=== PATIENT | male | born 1980 | race Caucasian/White ===

== ENCOUNTER 2018-06-14 09:21 | Emergency (ER) | payer OTHER, SELFPAY ==
[2018-06-14] MEDS ORDERED: Sodium Chloride 0.9% 1,000 ML IV STA (09:39)
[2018-06-14 09:41] VITALS: RESP 18; O2SAT 99
--- NOTE | 2018-06-14 10:13 | ED PDOC ---
Arrival/HPI - General Chief Complaint: Syncope Time Seen by Provider: 06/14/18 09:22 Historian: Patient - History of Present Illness Narrative History of Present Illness (Text): 06/14/18 10:05 37yo yo male with no pmhx who was bib EMS for complaint syncopal episode this morning. Patient states he have had fever, nondproductive cough and generalized weakness for 2days and was buying OTC cold symptoms when he had a near syncopal episode. States he did not get the flu vaccine. Denies sore throat, nausea, vomiting, diarrhea, constipation, chest pain, headache, focal weakness, neck pain, back pain, abdominal pain, sick contact, any other complaint. Past Medical History - Provider Review Nursing Documentation Reviewed: Yes - Psychiatric Hx Substance Use: No Family/Social History - Physician Review Nursing Documentation Reviewed: Yes Family/Social History: Unknown Family HX Smoking Status: Never Smoked Hx Alcohol Use: No Hx Substance Use: No Allergies/Home Meds Allergies/Adverse Reactions: Allergies No Known Allergies Allergy (Verified 06/14/18 09:25) Review of Systems - Physician Review All systems were reviewed & negative as marked: Yes - Review of Systems Constitutional: Fatigue, Fevers Eyes: Normal ENT: Normal Respiratory: Cough Cardiovascular: Normal Gastrointestinal: Normal Genitourinary Male: Normal Musculoskeletal: Normal Skin: Normal Neurological: Normal Endocrine: Normal Hemo/Lymphatic: Normal Psychiatric: Normal Physical Exam Vital Signs Reviewed: Yes Vital Signs Temp Pulse Resp BP Pulse Ox 06/14/18 09:40 100.5 F H 90 18 107/79 99 Temperature: Febrile Blood Pressure: Normal Pulse: Regular Respiratory Rate: Normal Appearance: Positive for: Well-Appearing, Non-Toxic, Comfortable Pain Distress: None Mental Status: Positive for: Alert and Oriented X 3 Finger Stick Blood Glucose: 111 - Systems Exam Head: Present: Atraumatic, Normocephalic Pupils: Present: PERRL Extroacular Muscles: Present: EOMI Conjunctiva: Present: Normal Mouth: Present: Moist Mucous Membranes Pharnyx: Present: Normal Neck: Present: Normal Range of Motion Respiratory/Chest: Present: Clear to Auscultation, Good Air Exchange. No: Respiratory Distress, Accessory Muscle Use, Wheezes, Decreased Breath Sounds, Rales, Retracting, Rhonchi Cardiovascular: Present: Regular Rate and Rhythm, Normal S1, S2. No: Murmurs Abdomen: No: Tenderness, Distention, Peritoneal Signs Back: Present: Normal Inspection Upper Extremity: Present: Normal Inspection. No: Cyanosis, Edema Lower Extremity: Present: Normal Inspection. No: Edema Neurological: Present: GCS=15, CN II-XII Intact, Speech Normal, Motor Func Grossly Intact, Normal Sensory Function, Normal Cerebellar Funct, Memory Normal, Other (No gross focal neurological deficit) Skin: Present: Warm, Dry, Normal Color. No: Rashes Psychiatric: Present: Alert, Oriented x 3, Normal Insight, Normal Concentration Medical Decision Making ED Course and Treatment: 06/14/18 11:10 37yo male bib EMS for syncopal episode. Pt reported fever and cough x2days. He was febrile in ED. Labs 1L NS, Ibuprofen 600mg Rapid strep Chest xray Lab was reviewed and pt was noted to be leukopenic. Rapid flu is negative. Pt treated with Tamiflu. Result was DW the pt and he was DC home with Tamiflu. Referred to his PMD/Clinic - RAD Interpretation Radiology Orders: 06/14/18 09:39 CHEST PORTABLE [RAD] Stat - Medication Orders Current Medication Orders: Sodium Chloride (Sodium Chloride 0.9%) 1,000 mls @ 999 mls/hr IV .Q1H1M STA Stop: 06/14/18 10:39 Discontinued Medications Ibuprofen (Motrin Tab) 600 mg PO STAT STA Stop: 06/14/18 09:57 Disposition/Present on Arrival - Present on Arrival Any Indicators Present on Arrival: No History of DVT/PE: No History of Uncontrolled Diabetes: No Urinary Catheter: No History of Decub. Ulcer: No History Surgical Site Infection Following: None - Disposition Have Diagnosis and Disposition been Completed?: Yes Diagnosis: Influenza Disposition: HOME/ ROUTINE Disposition Time: 10:50 Patient Plan: Discharge Condition: STABLE Discharge Instructions (ExitCare): Flu, Adult (DC) Additional Instructions: Drink plenty of fluid and rest take Tylenol every 6hrs as needed for fever/bodyache Take medication as directed Follow up with your doctor Return to ED for any new or worsening symptoms Prescriptions: Benzonatate [Tessalon Perles] 100 mg PO TID #30 sgl Oseltamivir Phosphate [Tamiflu] 75 mg PO BID #14 capsule Referrals: Gina Taylor MD [Medical Doctor] - Follow up with primary Forms: [employer] (Vietnamese)
[2018-06-14 10:38] LABS: EOS % 0.5 % (1.5-5.0); HEMOGLOBIN 14.8 g/dL (14.0-18.0); LYMPH # 0.9 (1.2-3.4); LYMPH % 21.5 % (22.0-35.0); MEAN CELL VOLUME 88.8 fl (80.0-105.0); MEAN CORPUSCULAR HEMOGLOBIN 30.1 pg (25.0-35.0); MEAN CORPUSCULAR HGB CONC 33.9 g/dl (31.0-37.0); MEAN PLATELET VOLUME 10.4 fl (7.0-11.0); MONO # 0.5 (0.1-0.6); MONO % 11.9 % (1.0-6.0); RBC 4.91 10^6/uL (3.5-6.1); RED CELL DISTRIBUTION WIDTH 12.4 % (11.5-14.5); URINE BILIRUBIN NEGATIVE (NEGATIVE); URINE BLOOD NEGATIVE (NEGATIVE); URINE GLUCOSE (UA) NEGATIVE (NEGATIVE); URINE LEUKOCYTE ESTERASE NEGATIVE Leu/uL (NEGATIVE); URINE PROTEIN NEGATIVE mg/dL (<30 mg/dL); URINE UROBILINOGEN 0.2 E.U./dL (<1 E.U./dL); WHITE BLOOD COUNT 4.3 10^3/uL (4.5-11.0)
[2018-06-14 10:39] LABS: URINE APPEARANCE CLEAR (CLEAR); URINE COLOR YELLOW (YELLOW)
[2018-06-14 10:43] LABS: INR 1.19; PARTIAL THROMBOPLASTIN TIME 37.2 Seconds (26.9-38.3); PROTHROMBIN TIME 13.4 SECONDS (9.4-12.5)
[2018-06-14 10:50] LABS: ALB/GLOB RATIO 1.3 (1.1-1.8); ALBUMIN 4.6 g/dL (3.0-4.8); ALT/SGPT 14 U/L (7-56); AST/SGOT 23 U/L (17-59); BLOOD UREA NITROGEN 15 mg/dL (7-21); CALCIUM 9.1 mg/dL (8.4-10.5); GFR NON-AFRICAN AMERICAN > 60
[2018-06-14 10:59] LABS: PHENCYCLIDINE, UR NEGATIVE (NEGATIVE)
[2018-06-14 11:07] LABS: TROPONIN I < 0.01 ng/mL
[2018-06-14 11:27] LABS: BARBITURATES, UR NEGATIVE (NEGATIVE); BENZODIAZEPINES, UR NEGATIVE (NEGATIVE); OPIATES, UR NEGATIVE (NEGATIVE)
[2018-06-14 11:36] VITALS: BP 110/69; PULSE 77; TEMP 98.9
--- NOTE | 2018-06-14 12:59 | RAD ---
Date of service: 06/14/2018 HISTORY: cough COMPARISON: No prior. FINDINGS: LUNGS: No active pulmonary disease. PLEURA: No significant pleural effusion identified, no pneumothorax apparent. CARDIOVASCULAR: No aortic atherosclerotic calcification present. Normal cardiac size. No pulmonary vascular congestion. OSSEOUS STRUCTURES: No significant abnormalities. VISUALIZED UPPER ABDOMEN: Normal. OTHER FINDINGS: None. IMPRESSION: No active disease.
--- NOTE | 2018-06-14 16:18 | CARD ---
APPROVED REPORT Date of service: 06/14/2018 EKG Measurement Heart [id number] MD [id number] <Conclusion> Normal sinus rhythm Normal ECG
== END 2018-06-14 11:35 | disposition home or self-care (01) ==
LOC: EDBD 09:21 → ED 09:21
DX: J11.1 Influenza due to unidentified influenza virus with other respiratory manifestations (principal)
CPT/HCPCS: 71045; 80053; 80324; 80345; 80346; 80349; 80353; 80358; 80361; 81003; 82550; 83615; 83735; 83992; 84100; 84484; 85025; 85610; 85730; 87040; 87804; 93005; 99285; J7030